=== PATIENT | female | born 1940 | race African-American/Black ===

== ENCOUNTER 2024-06-27 12:33 | Emergency (ER) | payer OTHER, MEDICAID ==
[~2024-06-27] VITALS: Ht 172.7 cm; Wt 90.0 kg
[2024-06-27 12:36] VITALS: O2SAT 99
[2024-06-27 14:07] LABS: BASOPHILS % 0.6 % (0.0-2.0); EOSINOPHILS % 0.8 % (0.0-5.0); HEMATOCRIT. 30.6 % (36.0-48.0); HEMOGLOBIN. 10.1 g/dL (12.0-16.0); MEAN CORPUSCULAR HEMOGLOBIN 32.7 pg (28.0-32.0); MEAN CORPUSCULAR HGB CONC 33.1 g/dL (31.0-37.0); MEAN CORPUSCULAR VOLUME 98.9 fL (81.0-99.0); MEAN PLATELET VOLUME 7.9 fl (7.4-10.4); MONOCYTES % 10.4 % (2.0-8.0); NEUTROPHILS % 69.2 % (40.0-76.0); PLATELET 285 x1000/uL (130-400); RED BLOOD CELL COUNT 3.09 mill/uL (4.2-5.4); RED CELL DISTRIBUTION WIDTH 15.9 % (11.6-14.6); WHITE BLOOD COUNT 4.4 x1000/uL (4.5-11.0)
[2024-06-27 14:14] LABS: CARBON DIOXIDE 23 mEq/L (21-32); CHLORIDE 93 mEq/L (98-107); POTASSIUM 4.4 mEq/L (3.5-5.1); SODIUM 124 mEq/L (136-145)
[2024-06-27 14:15] LABS: CALCIUM 8.7 mg/dL (8.7-10.4); PROTHROMBIN TIME 10.9 sec (9.6-11.0)
[2024-06-27 14:19] LABS: CREATININE 1.1 mg/dL (0.6-1.0)
[2024-06-27 14:20] LABS: GLUCOSE 138 mg/dL (70-105); TROPONIN I HIGH SENSITIVITY 4 ng/L (3.0-34); UREA NITROGEN BLOOD 9 mg/dL (9-23)
[2024-06-27 14:21] LABS: ALANINE AMINOTRANSFERASE 19 IU/L (10-49); ASPARTATE AMINOTRANSFERASE 31 IU/L (<34)
[2024-06-27 14:22] LABS: ALBUMIN 3.2 g/dL (3.2-4.8); BILIRUBIN DIRECT 0.1 mg/dL (<=3.0); BILIRUBIN TOTAL 0.4 mg/dL (0.1-1.0); PROTEIN TOTAL 5.7 g/dL (6.0-8.3)
[2024-06-27 14:27] LABS: LACTIC ACID 3.6 mmol/L (0.4-2.0)
[2024-06-27 14:28] LABS: ETHANOL BLOOD < 10 mg/dL (<10)
[2024-06-27] MEDS: IOHEXOL-350 100 ML BOTTLE ONE (14:33)
[2024-06-27] MEDS: ASPIRIN 81MG TABLET PO ONE (15:26)
[2024-06-27] MEDS: SODIUM CHLORIDE 0.9% 500 ML IV ONE (16:02)
[2024-06-27] MEDS: CEFTRIAXONE 1GM/50ML 50 ML IV ONE (16:02)
[2024-06-27 16:21] LABS: *AMPHETAMINES SCREEN URINE NEGATIVE (NEGATIVE); *BARBITURATES SCREEN URINE NEGATIVE (NEGATIVE); *BENZODIAZEPINES SCREEN URINE NEGATIVE (NEGATIVE); *COCAINE SCREEN URINE NEGATIVE (NEGATIVE); CANNABINOID URINE SCREEN NEGATIVE (NEGATIVE); ECSTASY MDMA SCREEN URINE NEGATIVE (NEGATIVE); METHADONE URINE SCREEN NEGATIVE (NEGATIVE); OPIATES URINE SCREEN NEGATIVE (NEGATIVE); PHENCYCLIDINE URINE SCREEN NEGATIVE (NEGATIVE)
[2024-06-27 16:22] LABS: CLARITY URINE CLEAR (CLEAR); COLOR URINE YELLOW (YELLOW); GLUCOSE URINE NEGATIVE (NEGATIVE); KETONES URINE NEGATIVE (NEGATIVE); LEUKOCYTE ESTERASE URINE NEGATIVE (NEGATIVE); NITRITE URINE NEGATIVE (NEGATIVE); OCCULT BLOOD URINE NEGATIVE (NEGATIVE); PH URINE 7.5 (4.5-8.0); PROTEIN URINE NEGATIVE (NEGATIVE); SPECIFIC GRAVITY URINE 1.013 (1.005-1.030); UROBILINOGEN URINE 0.2 E.U./dL (0.2-1.0)
[2024-06-27 17:34] VITALS: BP 148/67; PULSE 109; RESP 15; TEMP 36.7; O2SAT 100
== END 2024-06-27 17:50 | disposition short-term general hospital (02) ==
LOC: ER 12:52
DX: R41.82 Altered mental status, unspecified (principal); R55 Syncope and collapse; E11.9 Type 2 diabetes mellitus without complications; E78.00 Pure hypercholesterolemia, unspecified; I10 Essential (primary) hypertension
CPT/HCPCS: 80076; 80305; 80048; 81003; 80320; 83880; 83605; 83690; 85025; 85610; 87040; 84484; 36415; 84145; 71045; 70496; 70498; 70450; 93005; 96365; 99285; Q9967; J0696; J7040; G0480